=== PATIENT | female | born 1960 ===

== ENCOUNTER 2020-04-19 11:24 | Emergency (ER) | payer OTHER, SELFPAY ==
[2020-04-19] VITALS (10 sets, daily range): BP systolic 109–178; BP diastolic 79–96; PULSE 83–123; RESP 16–41; TEMP 36.8–38.7; O2SAT 38–95; BMI 26.6
--- NOTE | 2020-04-19 11:37 | PC.NURSE ---
Upon arrival to ED, pt has extremely labored breathing, accessory muscle use, and tachypnea up to the 70s. Pt placed on monitor and pulse ox with oxygen reading at 39% while on 15L NRB mask. Dr Reyes at bedside with pt. Pt placed on COVID precautions. RT at bedside and intubation set up. Bilateral 20g IVs placed immediately. Pt upper and lower dentures removed for intubation. Pt given 20mg Etomidate and 125mg Succ at 1139 via right AC. Pt intubated using glidescope at 1142 with 8.0 tube, 22 at the teeth. All COVID precautions maintained during intubation. Pt placed in soft restraints per VO from Dr Reyes, and placed on Propofol gtt at 10mcg/kg/min at 1149 with at 60mg bolus given per Dr Reyes. 100mcg Fentanyl given at 1154. Propofol titrated to 12mcg/kg/min and another 40mg bolus given IV per Dr Reyes. ABG obtained at 1155 by RT. OG placed at 1157. VS at 1200 as follows: 100/70, HR 97, RR 18 on the vent, 92%. Pt given 50mcg bolus via IV from Dr eRyes, drip titrated to 10mcg/kg/min. Simon placed at 1206 with urine return and sample obtained. 1208 VS as follows: 102/63, HR 99, RR 24 on vent, 90%.
[2020-04-19] MEDS: succinylcholine 20 mg/mL SDV 10mL 125 MG IVP (11:39)
[2020-04-19] MEDS: propofol 1,000 MG/100 ML INJ 12.5 MG (11:54)
--- NOTE | 2020-04-19 11:56 | XRR_ITS ---
PROCEDURE INFORMATION: Exam: XR Chest, 1 View Exam date and time: 04/19/2020 11:57 AM Age: 59 years old Clinical indication: Dyspnea; Additional info: Dyspnea, intubation TECHNIQUE: Imaging protocol: XR of the chest Views: 1 view. COMPARISON: No relevant prior studies available. FINDINGS: Tubes, catheters and devices: Endotracheal tube is in place the tip is 3.7 cm above the kun. There is a NG tube in place extending into the stomach. Lungs: There is diffuse parenchymal densities throughout both lungs corresponding to pulmonary edema. Low lung volumes seen. Pleural space: Unremarkable. No pleural effusion. No pneumothorax. Heart/Mediastinum: Unremarkable. No cardiomegaly. Bones/joints: Unremarkable. XR/XR chest 1V portable [id number] IMPRESSION: 1. Diffuse bilateral pulmonary edema 2. Endotracheal tube is in place as described. 3. NG tube extends into the stomach
--- NOTE | 2020-04-19 11:57 | ECG_ITS ---
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 Measurements Intervals [place] Rate: 109 P: 54 HI: 145 QRS: -17 QRSD: 112 T: 69 QT: 315 QTc: 424 Interpretive Statements SINUS TACHYCARDIA WITH OCCASIONAL SUPRAVENTRICULAR PREMATURE COMPLEXES POSSIBLE LEFT ATRIAL ENLARGEMENT [-0.1mV P WAVE IN V1/V2] MODERATE INTRAVENTRICULAR CONDUCTION DELAY [110+ ms QRS DURATION] NONSPECIFIC T-WAVE ABNORMALITY ABNORMAL RHYTHM ECG WARNING: DATA QUALITY MAY AFFECT INTERPRETATION No previous ECG available for comparison Electronically Signed On 04-19-2020 20:42:12 CDT by Bulmaro Fine M.D. [id number]
[2020-04-19 11:59] LABS: ABG PCO2 34.2 mmHg (35-45); ABG PH Result 7.37 (7.35-7.45); Arterial Blood Gas Hematocrit 47.9 % (37-47); Base Excess ABG -4.5 mmol/L (-2.0-2.0); Blood Gas Allen Test Pos; Blood Gas Operator Identificat MONRO; Blood Gas Sample Site Brachial, left; Blood Gas Sample Type Arterial; HCO3 ABG 19.9 mmol/L (22-26); Oxygen Device VENT; PO2 ABG 50.2 mmHg (80.0-100.0)
[2020-04-19] MEDS: fentaNYL 50 mcg/mL INJ 2mL 100 MCG IVP ×2 (12:00→14:59)
[2020-04-19 12:01] LABS: Basophils # 0.1 10^3/uL (0.0-0.1); Basophils % 0.4 %; Hematocrit 48.6 % (37.0-47.0); Hemoglobin 16.8 g/dL (11.5-15.3); Lymphocytes # 0.7 10^3/uL (0.8-4.8); Lymphocytes % 4.3 %; Mean Corpuscular HGB Conc 34.6 g/dL (30.0-36.0); Mean Corpuscular Hemoglobin 31.8 pg (28.0-34.0); Mean Platelet Volume 9.9 fL (7.4-10.4); Monocytes # 0.4 10^3/uL (0.2-0.9); Monocytes % 2.6 %; Neutrophils # 14.47 10^3/uL (1.8-7.7); Neutrophils % 91.7 %; Nucleated Red Blood Cells % 0 %; Platelet Count 331 10^3/cmm (130-400); Red Blood Count 5.28 10^6/uL (4.1-5.3); White Blood Count 15.8 10^3/uL (4.0-10.0)
[2020-04-19 12:10] LABS: INR 1.11 (0.8-1.2)
[2020-04-19 12:11] LABS: Partial Thromboplastin Time 28.5 SECONDS (23.9-36.7)
[2020-04-19 12:14] LABS: D Dimer 3.34 ug/mIFEU (0-0.59)
[2020-04-19 12:17] LABS: Fibrinogen 1179 mg/dL (184-529)
[2020-04-19 12:30] LABS: Lactic Sepsis W/Reflex 8.4 mmol/L (0.5-2.2)
[2020-04-19 12:31] LABS: Reflex Lactate Order REFLEX LACTIC ORDERD
[2020-04-19 12:33] LABS: NT Pro B Type Natriuretic Pept 805 pg/mL (0-125); Procalcitonin 0.29 ng/mL (0-0.5)
--- NOTE | 2020-04-19 12:37 | ED_ITS ---
HPI - SOB/Dyspnea General: Chief Complaint: Shortness of Breath/Dyspnea Stated Complaint: COVID SYMPTOMS Time Seen by Provider: 04/19/20 11:53 History of Present Illness: HPI Narrative: This patient is a 59 year old woman presenting by private vehicle - she was too ill to provide history - her sat was 36 percent and she was visibly cyanotic. i later obtained history from her daughter. The patient moved here about a year ago from [place] with her who is a truck supervisor. She had a family doctor in [place] but does have one here. She doesn't have insurance per her daughter. Her daughter does not think that she takes any prescription medicines but does not know if she might have taken some before she moved here. She does not know of any medical history. She does not know of any allergies. She said the patient has been sick for about a week with cough, fever, vomiting, headaches, decreased appetite. She has been taking aspirin, [id number] cough syrup and ibuprofen for her symptoms. No one else around her has been sick that the daughter is aware of. The patient does go out to the store but does not work. MD elicited complaint: shortness of breath and cough Onset (ago): week(s) (1) Review of Systems General: Reports: ROS unobtainable due to medical condition Physical Exam Const: EXAM LIMITATIONS: altered mental status GENERAL APPEARANCE: in distress and ill appearing ORIENTATION/CONSCIOUSNESS: Yes awake and Yes confused HENMT: HEAD & SCALP: normal to inspection FACE & SINUS: normal facial exam MOUTH: lip normal (Cyanotic) TEETH & GINGIVA: Yes bridge Eye: GENERAL EYE: appearance normal, both eyes and all related structures Neck/C-Spine: COMMON NORMALS: supple, no meningeal signs and no JVD Chest: COMMONS NORMALS: normal inspection of the chest Resp: EFFORT & INSPECTION: Yes abnormal respiratory pattern (Marked tachypnea), Yes tachypneic, Yes respiratory distress and Yes retractions AUSCULTATION: rhonchi throughout Cardio: COMMON NORMALS: no JVD, regular rhythm and Peripheral pulses 2+ throughout RATE: tachycardic RHYTHM: regular rhythm PERIPHERAL PULSES: Peripheral pulses 2+ throughout GI: COMMON NORMALS: Normal to inspection, nondistended, normoactive bowel so unds present, Soft to palpation and non-tender INSPECTION: Yes normal to inspection AUSCULTATION: Yes normoactive bowel sounds PALPATION: Yes Soft to palpation Back/Pelvis: COMMON NORMALS: thoracic and lumbar spine normal to inspection Extremity: COMMON NORMALS: normal to inspection Neuro: GIGI COMA SCALE: document GCS findings [place] coma scale eye opening: To sound [place] coma scale verbal response: Confused [place] coma scale motor response: Localising Gigi coma scale total score: 12 COMMON NORMALS: moves all extremities MENINGEAL SIGNS: Yes no meningeal signs Psych: MOOD & AFFECT: Yes anxious and Yes fearful Skin: COMMON NORMALS: no rashes or lesions noted and turgor normal GENERAL SKIN EXAM: no rashes or lesions noted and turgor normal Procedures Intubation Time out performed: Yes sedative: Etomidate paralytic: Succinylcholine Laryngoscope: fiber optic video scope ET Tube Size: 8 Tube Secured Depth (cm): 22 Tube Secured Location: teeth Tube Placement Confirmation: visualized tube passing through cords, equal breath sounds bilaterally, no breath sounds over epigastrium and confirmation by capnometry Patient Tolerated Procedure: well Intubation Complications: none Course Vital Signs: Vital signs: Vital Signs Temperature 101.6 F H 04/19/20 13:33 Pulse Rate 83 04/19/20 15:21 Respiratory Rate 20 H 04/19/20 15:21 Blood Pressure 117/85 04/19/20 15:21 Pulse Oximetry 89 L 04/19/20 15:21 MDM - SOB/Dyspnea MDM Narrative: Medical decision making narrative: Fever, cough, severe hypoxia, tachypnea, altered mental status. Very concerning presentation for COVID. Intubation was indicated and carried out using covered precautions. Chest x-ray with bilateral white out. Labs suggestive also of COVID and a antigen test was also positive. She was given dexamethasone, Lovenox, sats initially were around 90 on 100% oxygen on the vent. Gradually her sats came up to 95 100% oxygen and she was titrated down with a goal of keeping her around 90%. She is too ill for appropriate admission here since we do not have intensivists available this weekend. I spoke to Dr. Longoria at [facility] and he said they would accept her but he thought it might be better for her to go somewhere where ECMO was can to be an option. He suggested [place] or [facility]. Both facilities were willing to accept her in [facility] call back with a bed sooner so she will be transferred there. The ICU attending there agreed with our care so far and agreed with keeping her sat around 90%. She has me to paralyze her prior to transportation. I have spoken twice with the patient's daughter and advised her of the patient's severe illness and plan for transfer to [facility]. She has had a 500 mL bolus of normal saline. Fluids now are normal saline with 20 of K at 100 mL's per hour. Lab Data: Labs: Lab Results 04/19/20 04/19/20 04/19/20 Range/Units 11:33 11:33 11:33 WBC 15.8 H (4.0-10.0) 10^3/ uL RBC 5.28 (4.1-5.3) 10^6/u L Hgb 16.8 H (11.5-15.3) g/dL Hct 48.6 H (37.0-47.0) % MCV 92.0 (81-99) fL MCH 31.8 (28.0-34.0) pg MCHC 34.6 (30.0-36.0) g/dL RDW 12.0 L (12.1-15.1) % Plt Count 331 (130-400) 10^3/c mm MPV 9.9 (7.4-10.4) fL Neut % (Auto) 91.7 % Lymph % (Auto) 4.3 % [place] % (Auto) 2.6 % Eos % (Auto) 0.0 % Baso % (Auto) 0.4 % Neut # (Auto) 14.47 H (1.8-7.7) 10^3/u L Lymph # (Auto) 0.7 L (0.8-4.8) 10^3/u L [place] # (Auto) 0.4 (0.2-0.9) 10^3/u L Eos # (Auto) 0.0 (0.0-0.8) 10^3/u L Baso # (Auto) 0.1 (0.0-0.1) 10^3/u L Nucleated RBC % (a uto) 0 % Nucleated RBCs # 0.0 /100WBC PT 14.70 H (10.5-13.3) SECO NDS INR 1.11 (0.8-1.2) APTT 28.5 (23.9-36.7) SECO NDS Fibrinogen 1179 H (184-529) mg/dL D-Dimer 3.34 H (0-0.59) ug/mIFE U Specimen Type Sample Site ABG pH (7.35-7.45) ABG pCO2 (35-45) mmHg ABG pO2 (80.0-100.0) mmH g ABG HCO3 (22-26) mmol/L ABG Base Excess (-2.0-2.0) mmol/ L Diogenes Test Hematocrit (37-47) % O2 Delivery Device FiO2 % Tidal Volume PEEP cmH20 Board Catcher ID Sodium 127 L (136-145) mmol/L Potassium 3.0 L (3.5-5.1) mmol/L Chloride 86 L (98-107) mmol/L Carbon Dioxide 17 L (22-29) mmol/L Anion Gap 27.0 H (5-19) BUN 14 (6-20) mg/dL Creatinine 0.8 (0.5-0.9) mg/dL GFR Calculation 73.4 L (90-130) mL/min Glucose 215 H (65-115) mg/dL Calculated Osmolal ity 267 L (285-295) mOsm/k g Lactic Acid (0.5-2.2) mmol/L Lactic Acid (Sepsi s) (0.5-2.2) mmol/L Calcium 8.8 (8.5-10.5) mg/dL Ferritin > 1222 H (15-150) ng/mL Total Bilirubin 0.8 (0.15-1.2) mg/dL AST 106 H (0-32) U/L ALT 88 H (0-33) U/L Alkaline Phosphata se 113 H (35-105) IU/L Lactate Dehydrogen ase 825 H (135-214) U/L Troponin T Baselin e (0-10) ng/L Troponin T 120 Min stebbins (0-10) ng/L Delta Troponin T (0-10) ABS# C-Reactive Protein 124.3 H (0.0-4.9) mg/L NT-Pro-B Natriuret Pep 805 H (0-125) pg/mL Total Protein 9.2 H (6.6-8.7) g/dL Albumin 4.0 (3.5-5.2) g/dL Globulin 5.2 H (1.3-4.6) g/dL Procalcitonin 0.29 (0-0.5) ng/mL SARS-CoV-2 Ag (Rap id) (Negative) 04/19/20 04/19/20 04/19/20 Range/Units 11:33 11:33 11:46 WBC (4.0-10.0) 10^3/ uL RBC (4.1-5.3) 10^6/u L Hgb (11.5-15.3) g/dL Hct (37.0-47.0) % MCV (81-99) fL MCH (28.0-34.0) pg MCHC (30.0-36.0) g/dL RDW (12.1-15.1) % Plt Count (130-400) 10^3/c mm MPV (7.4-10.4) fL Neut % (Auto) % Lymph % (Auto) % [place] % (Auto) % Eos % (Auto) % Baso % (Auto) % Neut # (Auto) (1.8-7.7) 10^3/u L Lymph # (Auto) (0.8-4.8) 10^3/u L [place] # (Auto) (0.2-0.9) 10^3/u L Eos # (Auto) (0.0-0.8) 10^3/u L Baso # (Auto) (0.0-0.1) 10^3/u L Nucleated RBC % (a uto) % Nucleated RBCs # /100WBC PT (10.5-13.3) SECO NDS INR (0.8-1.2) APTT (23.9-36.7) SECO NDS Fibrinogen (184-529) mg/dL D-Dimer (0-0.59) ug/mIFE U Specimen Type Arterial Sample Site Brachial, left ABG pH 7.37 (7.35-7.45) ABG pCO2 34.2 L (35-45) mmHg ABG pO2 50.2 L (80.0-100.0) mmH g ABG HCO3 19.9 L (22-26) mmol/L ABG Base Excess -4.5 L (-2.0-2.0) mmol/ L Diogenes Test Pos Hematocrit 47.9 H (37-47) % O2 Delivery Device Vent FiO2 100.0 % Tidal Volume 0.50 PEEP 12.0 cmH20 Board Catcher ID [place] Sodium (136-145) mmol/L Potassium (3.5-5.1) mmol/L Chloride (98-107) mmol/L Carbon Dioxide (22-29) mmol/L Anion Gap (5-19) BUN (6-20) mg/dL Creatinine (0.5-0.9) mg/dL GFR Calculation (90-130) mL/min Glucose (65-115) mg/dL Calculated Osmolal ity (285-295) mOsm/k g Lactic Acid 8.4 H* (0.5-2.2) mmol/L Lactic Acid (Sepsi s) (0.5-2.2) mmol/L Calcium (8.5-10.5) mg/dL Ferritin (15-150) ng/mL Total Bilirubin (0.15-1.2) mg/dL AST (0-32) U/L ALT (0-33) U/L Alkaline Phosphata se (35-105) IU/L Lactate Dehydrogen ase (135-214) U/L Troponin T Baselin e 83 H (0-10) ng/L Troponin T 120 Min stebbins (0-10) ng/L Delta Troponin T (0-10) ABS# C-Reactive Protein (0.0-4.9) mg/L NT-Pro-B Natriuret Pep (0-125) pg/mL Total Protein (6.6-8.7) g/dL Albumin (3.5-5.2) g/dL Globulin (1.3-4.6) g/dL Procalcitonin (0-0.5) ng/mL SARS-CoV-2 Ag (Rap id) (Negative) 04/19/20 04/19/20 04/19/20 Range/Units 12:00 13:43 13:43 WBC (4.0-10.0) 10^3/ uL RBC (4.1-5.3) 10^6/u L Hgb (11.5-15.3) g/dL Hct (37.0-47.0) % MCV (81-99) fL MCH (28.0-34.0) pg MCHC (30.0-36.0) g/dL RDW (12.1-15.1) % Plt Count (130-400) 10^3/c mm MPV (7.4-10.4) fL Neut % (Auto) % Lymph % (Auto) % [place] % (Auto) % Eos % (Auto) % Baso % (Auto) % Neut # (Auto) (1.8-7.7) 10^3/u L Lymph # (Auto) (0.8-4.8) 10^3/u L [place] # (Auto) (0.2-0.9) 10^3/u L Eos # (Auto) (0.0-0.8) 10^3/u L Baso # (Auto) (0.0-0.1) 10^3/u L Nucleated RBC % (a uto) % Nucleated RBCs # /100WBC PT (10.5-13.3) SECO NDS INR (0.8-1.2) APTT (23.9-36.7) SECO NDS Fibrinogen (184-529) mg/dL D-Dimer (0-0.59) ug/mIFE U Specimen Type Sample Site ABG pH (7.35-7.45) ABG pCO2 (35-45) mmHg ABG pO2 (80.0-100.0) mmH g ABG HCO3 (22-26) mmol/L ABG Base Excess (-2.0-2.0) mmol/ L Diogenes Test Hematocrit (37-47) % O2 Delivery Device FiO2 % Tidal Volume PEEP cmH20 Board Catcher ID Sodium (136-145) mmol/L Potassium (3.5-5.1) mmol/L Chloride (98-107) mmol/L Carbon Dioxide (22-29) mmol/L Anion Gap (5-19) BUN (6-20) mg/dL Creatinine (0.5-0.9) mg/dL GFR Calculation (90-130) mL/min Glucose (65-115) mg/dL Calculated Osmolal ity (285-295) mOsm/k g Lactic Acid (0.5-2.2) mmol/L Lactic Acid (Sepsi s) 3.8 H (0.5-2.2) mmol/L Calcium (8.5-10.5) mg/dL Ferritin (15-150) ng/mL Total Bilirubin (0.15-1.2) mg/dL AST (0-32) U/L ALT (0-33) U/L Alkaline Phosphata se (35-105) IU/L Lactate Dehydrogen ase (135-214) U/L Troponin T Baselin e (0-10) ng/L Troponin T 120 Min stebbins 154.0 H (0-10) ng/L Delta Troponin T 71.0 H* (0-10) ABS# C-Reactive Protein (0.0-4.9) mg/L NT-Pro-B Natriuret Pep (0-125) pg/mL Total Protein (6.6-8.7) g/dL Albumin (3.5-5.2) g/dL Globulin (1.3-4.6) g/dL Procalcitonin (0-0.5) ng/mL SARS-CoV-2 Ag (Rap id) Positive H (Negative) Critical Care Time Critical Care Time: Critical Care Time: Yes Total Critical Care Time: 45 Attestation: I provided critical care to this patient exclusive of procedures and exclusive of care of other patients. Critical care involved immediate evaluation and treatment for respiratory failure on arrival. Multiple re- evaluations of respiratory status as well as cardiovascular status. She required multiple interventions for appropriate sedation. She was given emergency medications for treatment of COVID. I spoke with her daughter twice regarding the patient's history and then plan of care. I consulted with multiple physicians at multiple facilities to find appropriate accepting facility for transfer. She may be put on ECMO at [facility]. I gave report to the flight team when they came to take her to [facility]. Discharge Plan Discharge Patient Disposition: Xfer Short-Term Hosp Clinical Impression: COVID-19, Acute hypoxemic respiratory failure, Acute hypokalemia Condition: Stable Coding Level of Care Code ED Manager Environmental for [place] Fwd Exam Comprehensive
--- NOTE | 2020-04-19 12:43 | PC.NURSE ---
1220-50 mcg fentanyl bolus given via IV pump over 1 minute
[2020-04-19 12:46] LABS: Alanine Aminotransferase 88 U/L (0-33); Alkaline Phosphatase 113 IU/L (35-105); Aspartate Amino Transferase 106 U/L (0-32); Blood Urea Nitrogen 14 mg/dL (6-20); C Reactive Protein 124.3 mg/L (0.0-4.9); Calcium 8.8 mg/dL (8.5-10.5); Carbon Dioxide 17 mmol/L (22-29); Chloride 86 mmol/L (98-107); Globulin 5.2 g/dL (1.3-4.6); Glomerular Filtration Rate 73.4 mL/min (90-130); Glucose 215 mg/dL (65-115); Lactate Dehydrogenase 825 U/L (135-214); Osmolality Calculated 267 mOsm/kg (285-295); Sodium 127 mmol/L (136-145); Total Bilirubin 0.8 mg/dL (0.15-1.2); Total Protein 9.2 g/dL (6.6-8.7)
[2020-04-19 12:49] LABS: SARS Covid-2 Antigen Positive (Negative)
[2020-04-19] MEDS: vecuronium 10 mg SDV IVP ×2 (13:04→16:00)
[2020-04-19 13:13] LABS: Troponin(5th) Baseline 83 ng/L (0-10)
--- NOTE | 2020-04-19 13:14 | PC.NURSE ---
1258- 100 mcg fentanyl bolus given from IV pump
--- NOTE | 2020-04-19 13:15 | PC.NURSE ---
1259- fentanyl drip increased to 50mcg/hr
[2020-04-19] MEDS: dexamethasone 10 mg/mL INJ IVP (13:24)
[2020-04-19] MEDS: acetaminophen 650 mg Supp PR (13:24)
[2020-04-19] MEDS: sodium chloride 0.9% 500 ML 999 ML IV (13:25)
[2020-04-19] MEDS: sodium chloride 0.9% 1,000 ML 100 ML IV (13:25)
[2020-04-19] MEDS: enoxaparin 80 mg/0.8 mL Syringe 70 MG SUBCUT (13:25)
--- NOTE | 2020-04-19 13:57 | ECG_ITS ---
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 Measurements Intervals [place] Rate: 88 P: 56 MO: 140 QRS: 9 QRSD: 103 T: 34 QT: 348 QTc: 422 Interpretive Statements SINUS RHYTHM Compared to ECG 04/19/2020 11:36:16 Sinus tachycardia no longer present Intraventricular conduction delay no longer present T-wave abnormality no longer present Electronically Signed On 04-19-2020 20:47:35 CDT by Bulmaro Fine M.D. [id number]
[2020-04-19 14:14] LABS: Lactic Acid level (Lactate) 3.8 mmol/L (0.5-2.2)
--- NOTE | 2020-04-19 14:22 | PC.NURSE ---
Spoke with Madhavi at [facility] regarding further triage information. Will call back with bed number.
== END 2020-04-19 16:25 | disposition short-term general hospital (02) ==
PROVIDERS: Family Medicine; Emergency Provider Emergency Medicine
DX: U07.1 COVID-19 (principal); J96.01 Acute respiratory failure with hypoxia; E87.6 Hypokalemia; R06.02 Shortness of breath; R11.10 Vomiting, unspecified
CPT/HCPCS: 12345; 31500; 36415; 36600; 51702; 71045; 80053; 82728; 82803; 83605; 83615; 83880; 84145; 84484; 85025; 85378; 85384; 85610; 85730; 86140; 87040; 87070; 87205; 87426; 93005; 94002; 94799; 96365; 96366; 96367; 96372; 96375; 96376; 99284; 99291; J0330; J1100; J1650; J2704; J3010; J3490; J7030; J7040